=== PATIENT | male | born 1965 | race Caucasian/White ===

== ENCOUNTER 2020-02-25 20:04 | Emergency (ER) | payer MEDICAID, MEDICARE ==
--- NOTE | 2020-02-25 20:25 | ERPHSYRPT ---
- History of Present Illness Time Seen by Provider: 02/25/20 20:12 Source: patient Exam Limitations: no limitations Physician History: The patient is a 54-year-old male with a past medical history significant for coronary artery disease and here for reportedly had 5 stents placed in 2012 in addition to hypertension and ongoing cigarette smoking presents with a chief co mplaint of shortness of breath. Onset reportedly was 3 hours ago. He states that he was watching a football game whenever his shortness of breath started. He states he gets short of breath intermittently but does not know if his symptoms are correlated with exertion or mainly at rest. He denies fever, cough, chills, sinus, rhinorrhea, chest pain, nausea, vomiting in addition of diaphoresis. He denies having a history of anxiety and reportedly does not use supplemental oxygen at home. History of any known malignancy, DVT/PE, any recent surgery or immobilization. The nurse that he was diagnosed with Covid prior to but has finishes quarantine. Despite telling me he has not had a cough he informed the nurse that he still deals with intermittent cough his diagnosis. Associated Symptoms: shortness of breath, No nausea, No vomiting, No abdominal pain Allergies/Adverse Reactions: meperidine [From Demerol] Adverse Reaction (Intermediate, Verified 02/25/20 20:38) Home Medications: Carvedilol [Coreg] 25 mg PO BID 02/25/20 [History] Lisinopril 20 mg [Zestril 20 MG] 20 mg PO BID 02/25/20 [History] PANTOPRAZOLE 40 mg Tablet [Protonix 40MG Tablet] 40 mg PO QAM 02/25/20 [History] Simvastatin [Zocor] 40 mg PO DAILY 02/25/20 [History] Hx Tetanus, Diphtheria Vaccination/Date Given: Yes Hx Influenza Vaccination/Date Given: No Hx Pneumococcal Vaccination/Date Given: No - Review of Systems Constitutional: No Fever Respiratory: Dyspnea, No Cough, No Dyspnea on Exertion (ONTIVEROS), No Wheezing Abdominal/Gastrointestinal: No Abdominal Pain, No Nausea, No Vomiting Musculoskeletal: No Symptoms Skin: No Symptoms Neurological: No Symptoms Psychological: No Symptoms Endocrine: No Symptoms Hematologic/Lymphatic: No Symptoms Immunological/Allergic: No Symptoms All Other Systems: Reviewed and Negative - Past Medical History Pertinent Past Medical History: Yes Neurological History: No Pertinent History ENT History: No Pertinent History Cardiac History: Coronary Artery Disease, Myocardial Infarction ([place]) Respiratory History: No Pertinent History Endocrine Medical History: No Pertinent History Musculoskeletal History: No Pertinent History GI Medical History: No Pertinent History History: No Pertinent History Psycho-Social History: No Pertinent History Male Reproductive Disorders: No Pertinent History - Past Surgical History Past Surgical History: Yes Neuro Surgical History: No Pertinent History Cardiac: Cardiac Stent, Cardiac Catheterization Respiratory: No Pertinent History Gastrointestinal: Appendectomy Genitourinary: No Pertinent History Musculoskeletal: No Pertinent History Male Surgical History: No Pertinent History - Social History Smoking Status: Current every day smoker How long have you smoked: 30 YRS Exposure to second hand smoke: Yes Drug Use: none Patient Lives Alone: Yes - Nursing Vital Signs Nursing Vital Signs: Initial Vital Signs Pulse Rate 81 02/25/20 20:07 Respiratory Rate 22 02/25/20 20:07 Blood Pressure 166/93 02/25/20 20:07 O2 Sat by Pulse Oximetry 99 02/25/20 20:07 Pain Scale Pain Intensity 0 - Physical Exam General Appearance: no apparent distress, alert Eye Exam: PERRL/EOMI, eyes nml inspection, scleral icterus, No pale conjunctivae, No photophobia Ears, Nose, Throat Exam: normal ENT inspection, No pharynx normal, No moist mucous membranes Neck Exam: normal inspection, non-tender, supple Respiratory Exam: normal breath sounds, lungs clear, airway intact, No respi ratory distress, No diminished breath sounds, No accessory muscle use Cardiovascular Exam: regular rate/rhythm, normal heart sounds, normal peripheral pulses, capillary refill <2 sec, No murmur, No friction rub, No gallop, No edema Gastrointestinal/Abdomen Exam: soft Rectal Exam: deferred Back Exam: normal inspection Extremity Exam: normal inspection Neurologic Exam: alert, oriented x 3, cooperative, No EOM palsy Skin Exam: normal color, warm, dry, No rash, No petechiae, No jaundice SpO2 Interpretation: normal O2 Delivery: Room Air - Course Nursing assessment & vital signs reviewed: Yes EKG Interpreted by Me: RATE, Sinus Rhythm, NORMAL AXIS, NORMAL QRS, NORMAL ST-T - Radiology Exams Chest X-ray Interpretation: Interpreted by me, Reviewed by me, Negative (No acute cardiopulmonary findings), No Fracture - CT Exams Chest CT Interpretation: Other (Negative for PE. Changes consistent with COPD) Ordered Tests: Active Orders 24 hr Category Date Time Status Ophthalmic Assistant STAT Care 02/25/20 20:20 Active EKG-ER Only STAT Care 02/25/20 20:20 Active IV Insertion STAT Care 02/25/20 20:20 Active CHEST 2 VIEWS (PA AND LAT) Stat Exams 02/25/20 20:20 Taken CHEST WITH CONTRAST [CT] Stat Exams 02/25/20 20:49 Taken BMP Stat Lab 02/25/20 20:26 Completed CBC W DIFF Stat Lab 02/25/20 20:26 Completed D-DIMER QUANTITATIVE Stat Lab 02/25/20 20:26 Completed NT PRO BNP Stat Lab 02/25/20 20:26 Completed TROPONIN Q3H Lab 02/25/20 20:26 Completed TROPONIN Q3H Lab 02/25/20 23:04 Completed TROPONIN Q3H Lab 02/26/20 02:30 Ordered TROPONIN Q3H Lab 02/26/20 05:30 Ordered TROPONIN Q3H Lab 02/26/20 08:30 Ordered Respiratory MDI ONCE RT 02/25/20 22:35 Active Respiratory Therapy Assessment DAILY RT 02/25/20 22:46 Active Medication Summary Discontinued Medications Generic Name Dose Route Start Last Admin Trade Name Freq PRN Reason Stop Dose Admin Albuterol Sulfate 4 puff 02/25/20 22:04 Ventolin Common Canister IH 02/25/20 22:05 ONCE STA Albuterol Sulfate Confirm 02/25/20 22:15 Ventolin Hfa Mdi Administered 02/25/20 22:16 Dose 8 gm IH .STK-MED ONE Albuterol Sulfate 18 gm 02/25/20 22:35 Ventolin Hfa Mdi IH 02/25/20 22:36 ONCE ONE Albuterol Sulfate 8 gm 02/25/20 22:35 02/25/20 22:35 Ventolin Hfa Mdi IH 02/25/20 22:36 8 gm ONCE ONE Administration Lab/Rad Data: Laboratory Result Diagrams 02/25/20 20:26 02/25/20 20:26 Laboratory Results 02/25/20 02/25/20 02/25/20 Range/Units 23:04 20:26 20:26 WBC (4.0-10.5) K/mm3 RBC (4.1-5.6) M/mm3 Hgb (12.5-18.0) gm/dl Hct (42-50) % MCV (78-100) fl MCH (26-32) pg MCHC (32-36) g/dl RDW (11.5-14.0) % Plt Count (150-450) K/mm3 MPV (7.5-11.0) fl Gran % (36.0-66.0) % Eos # (Auto) (0-0.5) Absolute Lymphs (auto) (1.0-4.6) Absolute Monos (auto) (0.0-1.3) Lymphocytes % (24.0-44.0) % Monocytes % (0.0-12.0) % Eosinophils % (0.00-5.0) % Basophils % (0.0-0.4) % Absolute Granulocytes (1.4-6.9) Basophils # (0-0.4) D-Dimer 716 H* (215-500) ng/mL Sodium (137-145) mmol/L Potassium (3.5-5.1) mmol/L Chloride (98-107) mmol/L Carbon Dioxide (22-30) mmol/L Anion Gap (5-15) MEQ/L BUN (9-20) mg/dL Creatinine (0.66-1.25) mg/dL Estimated GFR ML/MIN Glucose (74-106) mg/dL Calcium (8.4-10.2) mg/dL Troponin I < 0.012 < 0.012 (0.000-0.034) ng/mL NT-Pro-B Natriuret Pep (0-900) pg/mL 02/25/20 02/25/20 Range/Units 20:26 20:26 WBC 14.5 H (4.0-10.5) K/mm3 RBC 4.56 (4.1-5.6) M/mm3 Hgb 15.3 (12.5-18.0) gm/dl Hct 44.6 (42-50) % MCV 97.8 (78-100) fl MCH 33.6 H (26-32) pg MCHC 34.3 (32-36) g/dl RDW 11.7 (11.5-14.0) % Plt Count 200 (150-450) K/mm3 MPV 9.7 (7.5-11.0) fl Gran % 54.6 (36.0-66.0) % Eos # (Auto) 0.45 (0-0.5) Absolute Lymphs (auto) 4.95 H (1.0-4.6) Absolute Monos (auto) 1.12 (0.0-1.3) Lymphocytes % 34.0 (24.0-44.0) % Monocytes % 7.7 (0.0-12.0) % Eosinophils % 3.1 (0.00-5.0) % Basophils % 0.6 (0.0-0.4) % Absolute Granulocytes 7.94 H (1.4-6.9) Basophils # 0.08 (0-0.4) D-Dimer (215-500) ng/mL Sodium 133 L (137-145) mmol/L Potassium 3.8 (3.5-5.1) mmol/L Chloride 96 L (98-107) mmol/L Carbon Dioxide 31 H (22-30) mmol/L Anion Gap 10.4 (5-15) MEQ/L BUN 8 L (9-20) mg/dL Creatinine 0.69 (0.66-1.25) mg/dL Estimated GFR > 60.0 ML/MIN Glucose 114 H (74-106) mg/dL Calcium 9.5 (8.4-10.2) mg/dL Troponin I (0.000-0.034) ng/mL NT-Pro-B Natriuret Pep 302 (0-900) pg/mL - Progress Progress Note: 02/25/20 20:53 Lab called and d-dimer mildly elevated. CTA chest ordered to r/o PE. 02/25/20 20:54 Site appearance. The patient appears to be in no obvious respiratory distress and he currently has no hypoxia at this time. Clinical bilaterally. I will go ahead and check general labs to include CBC to eval for anemia, BMP electrolyte disturbance D-dimer to restratify for PE, cardiac markers including BMP to eval for evidence of CHF as the etiology of his dyspnea, in addition to a troponin to eval for evidence that this could be an ACS equivalent, and a chest x-ray to eval for a infiltrate that would suggest pneumonia, pneumothorax, pleural effusion or mass. His EKG was reviewed showed no evidence of acute myocardial ischemia or injury. 02/25/20 22:06 The patient was updated with his work-up findings thus far and that everything appears to be relatively negative from an ACS standpoint, PE standpoint in addition to the pneumonia standpoint. He was informed that his CT showed changes consistent with emphysematous changes likely reflective of his prior his tory in addition to ongoing cigarette smoking. States he feels as if he can just cannot get a deep breath and was receptive to receiving an albuterol inhaler to see if this relieves his symptoms. I will check another troponin III hours from the initial and if this is within normal limits I think he can go home to follow-up with his primary care provider if he has no hypoxia with exertion in the emergency department. Counseled pt/family regarding: lab results, diagnosis, need for follow-up, rad results, smoking cessation - Departure Clinical Impression: Dyspnea, Tobacco abuse, Tobacco abuse counseling Condition: Stable Critical Care Time: No Referrals: RICHIE MORALES MD [Primary Care Provider] - Instructions: Shortness of Breath (Dyspnea) (DC) Prescriptions: Prednisone 10 mg [Deltasone 10 mg] 40 mg PO TID 5 Days #12 tablet Albuterol 8 gm Mdi Hfa [Ventolin Hfa MDI] 90 mcg IH Q4H PRN #1 [email or web address] PRN Reason: Shortness Of Breath Doxycycline Hyclate 100 mg [Vibramycin 100 MG] 100 mg PO BID 7 Days #14 tab
[2020-02-25 20:30] LABS: Absolute Neutrophil Ct (ANC) 7.94 (1.4-6.9); BASOPHIL % 0.6 % (0.0-0.4); Basophil (Absolute #) 0.08 (0-0.4); Eosinophil % 3.1 % (0.00-5.0); Eosinophil (Absolute #) 0.45 (0-0.5); Hematocrit 44.6 % (42-50); Hemoglobin 15.3 gm/dl (12.5-18.0); Lymphocyte (Absolute #) 4.95 (1.0-4.6); Mean Cell Volume 97.8 fl (78-100); Mean Corpuscular Hemoglobin 33.6 pg (26-32); Mean Corpuscular Hgb Concent. 34.3 g/dl (32-36); Mean Platelet Volume 9.7 fl (7.5-11.0); Monocyte (Absolute #) 1.12 (0.0-1.3); Monocytes % 7.7 % (0.0-12.0); Neutrophil % 54.6 % (36.0-66.0); Platelet Count 200 K/mm3 (150-450); Red Blood Count 4.56 M/mm3 (4.1-5.6); Red Cell Distribution Width 11.7 % (11.5-14.0); White Blood Count 14.5 K/mm3 (4.0-10.5)
[2020-02-25 20:51] LABS: ANION GAP 10.4 MEQ/L (5-15); BLOOD UREA NITROGEN 8 mg/dL (9-20); CHLORIDE 96 mmol/L (98-107); Calcium 9.5 mg/dL (8.4-10.2); Carbon Dioxide 31 mmol/L (22-30); Creatinine 1 0.69 mg/dL (0.66-1.25); EST GLOMERULAR FILTRATION RATE > 60.0 ML/MIN; Glucose 114 mg/dL (74-106); NT PRO BNP 302 pg/mL (0-900); Potassium 3.8 mmol/L (3.5-5.1); SODIUM 133 mmol/L (137-145)
[2020-02-25] MEDS ORDERED: VENTOLIN COMMON CANISTER IH STA (22:04)
[2020-02-25] MEDS ORDERED: Ventolin Hfa MDI IH ONE ×3 (22:15→22:35)
[2020-02-25 23:49] VITALS: BP 98/69; PULSE 65; O2SAT 98
--- NOTE | 2020-02-26 19:03 | XRAY ---
Exam: Two-view chest from 02/25/2020 Comparison: None. Indication: Dyspnea, positive Covid-19 test in mid January,. Findings: PA and lateral chest films were obtained. The heart size and contour are normal. The lory and mediastinal structures appear unremarkable. A calcified granuloma is seen within the upper aspect of the lingula of the left upper lobe. There is mild hyperinflation of the lungs. No air space infiltrates, vascular congestion, pneumothorax, or pleural fluid is seen. Minimal anterior thoracic vertebral endplate spurring is seen within the lower mid thoracic spine. No acute osseous abnormality is seen. Impression: 1. No air space infiltrates or other acute cardiopulmonary disease is seen. 2. There is mild hyperinflation of the lungs with a prominent retrosternal airspace. Correlate clinically regarding COPD.
--- NOTE | 2020-02-26 19:24 | XRAY ---
Exam: CT of the chest with IV contrast, per PE protocol from 02/25/2020. Total DLP: 553.27 mGy-cm Comparison: Two-view chest series from 02/25/2020. Indication: 54-year-old male with elevated d-dimer, elevated white blood cell count, positive Covid-19 test in January. Patient became short of breath at home, history of prior myocardial infarction. Technique: Post-IV contrast axial images were obtained through the chest, per PE protocol, during automated infusion of 80 cc of Isovue-370 contrast material. Reconstructed coronal and sagittal images were created and reviewed. Findings: The pulmonary arteries are well-opacified and reveals no filling defects to suggest clot/emboli. Mild atherosclerotic vascular calcification is seen within the aortic arch and descending thoracic aorta. No thoracic aortic aneurysm or dissection is seen. The heart size is normal without evidence of pericardial effusion. Some left coronary artery vascular calcification is seen. No abnormal mediastinal or perihilar lymphadenopathy is seen. I note a few small granulomatous calcifications overlying the left hilum and subcarinal region. No abnormal axillary lymphadenopathy is seen. The visualized thyroid gland appears grossly unremarkable. Mild centrilobular emphysematous changes are seen bilaterally. A calcified granuloma is seen within the anterior left lower lung field within the lingula. No airspace consolidations or groundglass infiltrates are seen. No pneumothorax or pleural effusion is seen. The visualized upper abdomen reveals an unremarkable appearance of the adrenal glands. Inhomogeneous attenuation of the spleen is seen, likely due to the timing of the contrast bolus administration. There is evidence of lower cervical anterior surgical fusion procedure. No acute fracture or aggressive bone lesion is seen. Minimal anterior lateral vertebral endplate spurring is seen within the spine. Impression: 1. I see no evidence of pulmonary embolus. 2. Mild centrilobular emphysematous changes are seen. 3. Old healed granulomatous disease and evidence of prior lower cervical anterior fusion are seen. 4. No infiltrates to suggest focal pneumonia or other acute cardiopulmonary disease is seen.
== END 2020-02-25 23:49 | disposition home or self-care (01) ==
LOC: ED 20:04
DX: R06.00 Dyspnea, unspecified (principal); Z72.0 Tobacco use; Z71.6 Tobacco abuse counseling; I25.10 Atherosclerotic heart disease of native coronary artery without angina pectoris; Z79.899 Other long term (current) drug therapy; I25.2 Old myocardial infarction
CPT/HCPCS: 36000; 36415; 71046; 71260; 80048; 83880; 84484; 85025; 85379; 93005; 93041; 94640; 99284; A9270-GY

== ENCOUNTER 2021-06-04 12:39 | Day surgery (SDC) | payer MEDICARE ==
[2021-06-04] MEDS ORDERED: Depo-Medrol 40 MG/ML IM ONE (12:40)
[2021-06-04] MEDS ORDERED: XYLOCAINE 1% HCL 20 ML MDV IJ ONE (12:40)
[2021-06-04] MEDS ORDERED: BUPIVACAINE 0.5% VIAL IJ ONE (12:40)
--- NOTE | 2021-06-04 16:22 | XRAY ---
Indication: Bilateral hip injection. Intraoperative fluoroscopy provided for 29 seconds. 2 digital spot image submitted for interpretation demonstrates needle tip projecting lateral to the left and right femur necks. Small amount of contrast injected for needle tip placement. Correlate with intraoperative findings/report.
--- NOTE | 2021-06-04 16:26 | XRAY ---
29 seconds of fluoroscopy was used in surgery for bilateral hips intra-articular injections.
== END 2021-06-04 14:47 | disposition home or self-care (01) ==
LOC: SDC-PAIN 12:39
PROVIDERS: ATTEND Psychiatry & Neurology Pain Medicine
DX: M16.0 Bilateral primary osteoarthritis of hip (principal); Z79.899 Other long term (current) drug therapy
CPT/HCPCS: 20610; 73521; 77002; J1030; Q9966

== ENCOUNTER 2021-07-09 10:01 | Day surgery (SDC) | payer MEDICARE ==
[2021-07-09] MEDS ORDERED: Depo-Medrol 40 MG/ML IM ONE (10:02)
[2021-07-09] MEDS ORDERED: BUPIVACAINE 0.5% VIAL IJ ONE (10:02)
[2021-07-09] MEDS ORDERED: Xylocaine 1% Vial 30 ML PF IJ ONE (10:02)
--- NOTE | 2021-07-09 12:43 | XRAY ---
Indication: Bilateral SI joints and bilateral greater trochanteric bursa injections. Intraoperative fluoroscopy provided for 35 seconds. 6 digital spot image obtained prone submitted for interpretation demonstrates posterior needle tips projecting over the inferior left and right SI joints. Additional needle tip lateral to the left and right greater trochanters with small amount of contrast injected for needle tip placement. Correlate with intraoperative findings/report.
--- NOTE | 2021-07-10 15:17 | XRAY ---
35 seconds fluoroscopy time in surgery for bilateral SI joint injections and bilateral greater trochanter injections.
== END 2021-07-09 12:01 | disposition home or self-care (01) ==
LOC: SDC-PAIN 10:01
PROVIDERS: ATTEND Psychiatry & Neurology Pain Medicine
DX: M46.1 Sacroiliitis, not elsewhere classified (principal); M70.62 Trochanteric bursitis, left hip; M70.61 Trochanteric bursitis, right hip; Z79.899 Other long term (current) drug therapy
CPT/HCPCS: 20610; 27096; 73522; 77002; G0260; J1030; J2001; Q9966

== ENCOUNTER 2021-09-17 15:54 | Day surgery (SDC) | payer MEDICARE ==
[~2021-09-17 15:54] MED LIST: Lactated Ringers 1,000 ML IV ONE
[2021-09-17] MEDS ORDERED: XYLOCAINE-MPF 1% 5ML SDV IJ ONE (15:55)
[2021-09-17] MEDS ORDERED: Depo-Medrol 40 MG/ML IM ONE (15:55)
[2021-09-17] MEDS ORDERED: Marcaine Mpf 0.5% Vial 30 Ml IJ ONE (15:55)
--- NOTE | 2021-09-17 19:55 | XRAY ---
Indication: Bilateral hip injections. Intraoperative fluoroscopy provided for 33 seconds. 2 digital spot image submitted for interpretation demonstrates needle tips projecting lateral to the left/right femur neck. Small amount of contrast injected for needle tip placement. Correlate with intraoperative findings/report.
--- NOTE | 2021-09-18 09:22 | XRAY ---
33 seconds of fluoroscopy was used in surgery for bilateral hips intra-articular injections.
== END 2021-09-17 18:35 | disposition home or self-care (01) ==
LOC: SDC-PAIN 15:54
PROVIDERS: ATTEND Psychiatry & Neurology Pain Medicine
DX: M16.0 Bilateral primary osteoarthritis of hip (principal); Z79.899 Other long term (current) drug therapy
CPT/HCPCS: 20610; 73521; 77002; J1030; Q9966

== ENCOUNTER 2021-11-19 09:57 | Day surgery (SDC) | payer MEDICARE ==
[2021-11-19] MEDS ORDERED: Sodium Chloride 0.9(Preservative Free) 10 ML IJ ONE (09:58)
[2021-11-19] MEDS ORDERED: Depo-Medrol 40 MG/ML IM ONE (09:58)
[2021-11-19] MEDS ORDERED: XYLOCAINE-MPF 1% 5ML SDV IJ ONE (09:58)
--- NOTE | 2021-11-19 12:42 | XRAY ---
19 seconds of fluoroscopy was used in surgery for a lumbar SEAN.
--- NOTE | 2021-11-19 12:42 | XRAY ---
Indication: Lumbar SEAN. Intraoperative fluoroscopy provided for 19 seconds. 4 digital spot image submitted for interpretation demonstrates posterior needle tip projecting just posterior to L4-L5 interspace. Small amount of contrast injected for needle tip placement. Correlate with intraoperative findings/report. Incidental left common iliac stent graft.
== END 2021-11-19 11:55 | disposition home or self-care (01) ==
LOC: SDC-PAIN 09:57
PROVIDERS: ATTEND Psychiatry & Neurology Pain Medicine
DX: M54.16 Radiculopathy, lumbar region (principal); Z79.899 Other long term (current) drug therapy
CPT/HCPCS: 62323; 72100; 77003; J1030; Q9966